=== PATIENT | male | born 1970 | race Two or more races ===

== ENCOUNTER 2021-02-12 08:03 | Emergency (ER) | payer BC, OTHER ==
[~2021-02-12] VITALS: Ht 170.2 cm; Wt 68.0 kg
[2021-02-12 08:33] LABS: Urine Bacteria NONE SEEN /hpf (None Seen); Urine Blood 3+ /uL (Negative); Urine Mucus FEW (None Seen); Urine Specific Gravity 1.032 (1.001-1.035); Urine WBC 2 /hpf (0 - 3)
[2021-02-12 08:44] VITALS: BP 135/90
[2021-02-12] MEDS ORDERED: THIAMINE 100mg/ml INJ (200mg/2ml VIAL) IV ONE (08:45)
[2021-02-12] MEDS ORDERED: SODIUM CHLORIDE 0.9% 1,000 ML IV ONE ×2 (08:45)
[2021-02-12 08:47] LABS: Amphetamine Screen, Urine NEGATIVE (NEGATIVE); Barbiturate Scree,Urine NEGATIVE (NEGATIVE); Benzodiazephine Screen, Urine NEGATIVE (NEGATIVE); Cannabinoid Screen, Urine NEGATIVE (NEGATIVE); Cocaine Screen, Urine NEGATIVE (NEGATIVE); Opiate Scree,Urine NEGATIVE (NEGATIVE); Phencyclidine Screen, Urine NEGATIVE (NEGATIVE)
[2021-02-12] MEDS ORDERED: chlordiazePOXIDE HCL 25 MG CAP PO ONE (09:00)
[2021-02-12 09:15] LABS: Basophils # (auto) 0 10 ^3/uL (0-0.2); Basophils % (auto) 0.2 % (0.0-2.0); Eosinophils # (auto) 0 10 ^3/uL (0-0.8); Hemoglobin 15.6 g/dL (13.5-17.5); Lymphocytes # (auto) 0.5 10 ^3/uL (0.4-5.4); Lymphocytes % (auto) 7.9 % (10.0-50.0); Mean Corpuscular Hemoglobin 29.9 pg (28.0-32.0); Mean Corpuscular Hgb Conc. 32.5 g/dL (32.0-36.0); Mean Corpuscular Volume 91.8 fL (80.0-100.0); Monocytes # (auto) 0.4 10 ^3/uL (0-1.3); Monocytes % (auto) 5.9 % (0.0-12.0); Neutrophils # (auto) 5.7 10 ^3/uL (1.6-8.6); Red Blood Cells 5.23 10^6/uL (4.5-5.90); Red Cell Distribution Width 14.3 % (11.8-14.3); White Blood Cell 6.6 10^3/uL (4.4-10.8)
[2021-02-12 09:34] LABS: Potassium 3.9 mmol/L (3.5-5.1)
[2021-02-12 09:35] LABS: Albumin 3.6 g/dL (3.4-5.0); BUN/Creatinine Ratio 16.3; Bilirubin, Total 1.8 mg/dL (0.2-1.0); Calcium 9.5 mg/dL (8.5-10.1); Magnesium 2.1 mg/dL (1.6-2.6); Total Protein 8.5 g/dL (6.4-8.2)
== END 2021-02-12 12:39 | disposition home or self-care (01) ==
LOC: ER 08:03
DX: F10.230 Alcohol dependence with withdrawal, uncomplicated (principal); R11.2 Nausea with vomiting, unspecified
CPT/HCPCS: 36415; 80053; 80307; 80320; 81001; 83735; 84484; 85025; 96361; 96374; 99283; J3411; J7030

== ENCOUNTER 2023-05-26 22:36 | Inpatient (IN) | payer BC ==
[~2023-05-26] VITALS: Ht 167.6 cm; Wt 72.5 kg
[2023-05-27] VITALS: PULSE 74; RESP 15; O2SAT 96
[2023-05-27 00:44] LABS: Basophils # (auto) 0.1 10 ^3/uL (0-0.2); Basophils % (auto) 1.2 % (0.0-2.0); Eosinophils # (auto) 0.1 10 ^3/uL (0-0.8); Eosinophils % (auto) 1.3 % (0.0-7.0); Hematocrit 43.2 % (41.0-53.0); Hemoglobin 14.2 g/dL (13.5-17.5); Lymphocytes # (auto) 1.5 10 ^3/uL (0.4-5.4); Lymphocytes % (auto) 27.4 % (10.0-50.0); Mean Corpuscular Hgb Conc. 32.8 g/dL (32.0-36.0); Mean Corpuscular Volume 91.5 fL (80.0-100.0); Monocytes # (auto) 0.9 10 ^3/uL (0-1.3); Monocytes % (auto) 15.5 % (0.0-12.0); Neutrophils # (auto) 3.1 10 ^3/uL (1.6-8.6); Neutrophils % (auto) 54.6 % (37.0-80.0); Nucleated Red Blood Cells % 0.1 %; Red Blood Cells 4.73 10^6/uL (4.5-5.90); Red Cell Distribution Width 14.7 % (11.8-14.3); White Blood Cell 5.6 10^3/uL (4.4-10.8)
[2023-05-27 00:45] LABS: Alanine Aminotransferase 38 U/L (7-40); Albumin 4.2 g/dL (3.2-4.8); Alkaline Phosphatase 108 U/L (46-116); Anion Gap 7 (5-15); Aspartate Aminotransferase 36 U/L (13-40); BUN/Creatinine Ratio 8.5 (10.0-20.0); Bilirubin, Total 0.4 mg/dL (0.2-1.0); Blood Urea Nitrogen 6 mg/dL (9-23); Calcium 8.7 mg/dL (8.7-10.4); Carbon Dioxide 28 mmol/L (20-30); Chloride 109 mmol/L (98-107); Glucose 113 mg/dL (74-106); Potassium 3.3 mmol/L (3.5-5.1); Sodium 144 mmol/L (136-145); Total Protein 7.2 g/dL (5.7-8.2)
[2023-05-27 00:59] LABS: INR 0.97 (0.9-1.15); Prothrombin Time 10.2 sec (9.3-11.8)
[2023-05-27] MEDS ORDERED: ONDANSETRON ODT 4 MG TAB PO ONE (01:45)
[2023-05-27] MEDS: MORPHINE SULFATE INJ 2 MG/ml SYRG IV ONE (02:17)
[2023-05-27] MEDS: ONDANSETRON HCL 4 MG/2 ML VIAL IV ONE (02:18)
[2023-05-27] MEDS ORDERED: ACETAMINOPHEN 325 MG TAB PO PRN (03:15)
[2023-05-27] MEDS ORDERED: ONDANSETRON HCL 4 MG/2 ML VIAL IV PRN (03:15)
[2023-05-27] MEDS: POTASSIUM CHL 20 Meq TABLET PO ONE (07:08)
[2023-05-27 07:40] VITALS: PULSE 67; RESP 17; O2SAT 95
[2023-05-27] MEDS: ENOXAPARIN SOD 100 MG/1 ML SYRINGE SC SCH (10:49)
[2023-05-27] MEDS: HYDROcodone-ACET 5/325MG TAB PO PRN (10:54)
[2023-05-27] MEDS: SODIUM CHLORIDE 0.9% 1,000 ML IV SCH (16:23)
[2023-05-27 18:30] VITALS: O2SAT 95
[2023-05-27 19:14] VITALS: O2SAT 95
[2023-05-27 20:00] VITALS: PULSE 76; RESP 16
[2023-05-27] MEDS: MORPHINE SULFATE INJ 2 MG/ml SYRG IV PRN (20:23)
[2023-05-27] MEDS: FOLIC ACID 1 MG, MULTIPLE VITAMIN 10 ML, MAGNESIUM SULF SDV 50% 8 MEQ, THIAMINE INJ 100... INJ SCH (20:26)
[2023-05-27 22:00] VITALS: BP 138/78; PULSE 74; RESP 18; TEMP 99; O2SAT 96
[2023-05-28 05:00] VITALS: BP 132/71; PULSE 61; RESP 17; TEMP 98.1; O2SAT 95
[2023-05-28 06:19] LABS: Chloride 102 mmol/L (98-107); Potassium 3.4 mmol/L (3.5-5.1); Sodium 137 mmol/L (136-145)
[2023-05-28 06:20] LABS: Calcium 8.9 mg/dL (8.5-10.1); Carbon Dioxide 29 mmol/L (20-30)
[2023-05-28 06:21] LABS: INR 1.02 (0.9-1.15); Partial Thromboplastin Time 33.8 SEC (24.5-34.5); Prothrombin Time 10.7 sec (9.3-11.8)
[2023-05-28 06:25] LABS: Blood Urea Nitrogen 5 mg/dL (9-23); Glucose 110 mg/dL (74-106)
[2023-05-28 07:24] LABS: Anion Gap 6 (5-15)
[2023-05-28 09:01] VITALS: BP 126/76; PULSE 57; RESP 17; TEMP 98.9; O2SAT 97
[2023-05-28 12:39] VITALS: BP 134/87; PULSE 75; RESP 17; TEMP 98; O2SAT 96
[2023-05-28 16:43] VITALS: BP 141/89; PULSE 58; RESP 16; TEMP 98; O2SAT 96
[2023-05-28 20:00] VITALS: PULSE 71; RESP 18
[2023-05-28 22:00] VITALS: BP 171/95; PULSE 71; RESP 18; TEMP 97.4; O2SAT 100
[2023-05-29 05:00] VITALS: BP 145/78; PULSE 60; RESP 18; TEMP 97.9; O2SAT 96
[2023-05-29 08:05] VITALS: BP 129/61; PULSE 72; RESP 16; TEMP 98
[2023-05-29 08:46] VITALS: BP 129/61; PULSE 72; RESP 16; TEMP 98; O2SAT 99
[2023-05-29 12:04] VITALS: BP 129/61; PULSE 72; RESP 16; TEMP 98; O2SAT 99
== END 2023-05-29 12:59 | disposition home or self-care (01) | DRG 301 ==
LOC: ER 22:36 → OVERFLOW 05-27 03:11 → WEST WING 05-27 18:03
PROVIDERS: ADMIT Nurse Practitioner; ATTEND Family Medicine
DX: I82.411 Acute embolism and thrombosis of right femoral vein (principal); E87.6 Hypokalemia; Z79.01 Long term (current) use of anticoagulants; Z91.199 Patient's noncompliance with other medical treatment and regimen due to unspecified reason; Z91.128 Patient's intentional underdosing of medication regimen for other reason
CPT/HCPCS: 36415; 80048; 80053; 84484; 85025; 85610; 85730; 96374; 96375; G0378; J2405; Q0162